=== PATIENT | female | born 1990 | race Caucasian/White ===

== ENCOUNTER 2017-06-16 19:33 | Emergency (ER) | payer SELFPAY ==
[~2017-06-16] VITALS: Ht 157.5 cm; Wt 44.5 kg
[~2017-06-16 19:33] MED LIST: NITR100C3 PO; PREN-385 PO
[2017-06-16 19:38] VITALS: BP 110/65
--- NOTE | 2017-06-16 19:40 | NUR ---
Pt presents to ED with x5 day abdominal pain with nausea. Pt states she is eating and drinking regularly with last BM on 06/15. Pt states pain is affecting her sleep. VSS. A&Ox4. In bed in poc. ER aware. Contininue to monitor.
--- NOTE | 2017-06-16 19:40 | NUR ---
TO ER BED 4
[2017-06-16] MEDS ORDERED: NACL 0.9% 1,000 ML IV ONE (20:35)
[2017-06-16] MEDS ORDERED: DICYCLOMINE HCL LIQUID 20 MG, ALUMINUM HYD/MAG/SIMETHICONE 30 ML, LIDOCAINE VISCOUS 2% ... PO ONE ×3 (20:35)
[2017-06-16] MEDS ORDERED: FAMOTIDINE 20 MG/2 ML VIAL IVP ONE (20:35)
[2017-06-16] MEDS ORDERED: ONDANSETRON 4 MG/2 ML VIAL IVP ONE (20:40)
[2017-06-16 21:23] LABS: BASOPHILS # (AUTO) 0.9 K/uL (0.00-0.22); EOSINOPHILS # (AUTO) 0.1 K/uL (0-0.4); HEMOGLOBIN 12.2 g/dL (12.0-16.0); MEAN CORPUSCULAR HEMOGLOBIN 29 pg (27-31); MEAN CORPUSCULAR HGB CONC 33 g/dL (33-37); MEAN CORPUSCULAR VOLUME 87 fL (80-94); MONOCYTES # (AUTO) 0.3 K/uL (0.8-1.0); NEUTROPHILS # (AUTO) 10.2 K/uL (1.8-7.7); PLATELET COUNT (AUTO) 282 K/uL (140-450); RED BLOOD CELL COUNT(AUTO) 4.26 MIL/uL (4.20-5.40); RED CELL DISTRIBUTION WIDTH 13.1 % (11.6-13.7); WHITE BLOOD COUNT (AUTO) 13.6 K/uL (4.8-10.8)
[2017-06-16 21:56] LABS: ANION GAP 13.1 (8-16); CARBON DIOXIDE 25.9 mmol/L (21-32); CREATININE 0.5 mg/dL (0.6-1.3)
[2017-06-16 21:59] LABS: ALBUMIN 3.9 g/dL (3.4-5.0); TOTAL BILIRUBIN 0.3 mg/dL (0.0-1.0)
[2017-06-16 22:12] LABS: APPEARANCE,URINE CLOUDY (CLEAR); BILIRUBIN,URINE NEGATIVE (NEGATIVE); BLOOD, URINE 1+ (NEGATIVE); COLOR,URINE YELLOW (YELLOW); LEUKOCYTE ESTERASE ,URINE NEGATIVE (NEGATIVE); NITRITE, URINE POSITIVE (NEGATIVE); PH,URINE 5.5 (5.0-9.0); UGLUCOSE NEGATIVE (NEGATIVE)
[2017-06-16 22:42] VITALS: BP 112/64
[2017-06-16 22:43] LABS: RBC,URINE 0-5 (RARE) /HPF (0-5); URINE AMORPHOUS URATE 4+ /HPF (None Seen); WBC,URINE 0-5 (RARE) /HPF (0-5)
--- NOTE | 2017-06-16 22:44 | NUR ---
Patient discharged with v/s stable. Written and verbal after care instructions given and explained. Patient alert, oriented and verbalized understanding of instructions. Ambulatory with steady gait. All questions addressed prior to discharge. ID band removed. Patient advised to follow up with PMD. Rx of ZOFRAN ODT, CIPRO 500MG, PEPCID 20MG given. Patient educated on indication of medication including possible reaction and side effects. Opportunity to ask questions provided and answered.
== END 2017-06-16 22:43 | disposition home or self-care (01) ==
LOC: MED 19:33
DX: N39.0 Urinary tract infection, site not specified (principal); Z79.899 Other long term (current) drug therapy
CPT/HCPCS: 36415; 80053; 81001; 81025; 83690; 84703; 85025; 87086; 87186; 96361; 96374; 96375; 99284; J2405; J3490; J7030

== ENCOUNTER 2022-08-17 21:34 | Inpatient (IN) | payer OTHER ==
[~2022-08-17] VITALS: Ht 160 cm; Wt 52.6 kg
[2022-08-17 22:55] VITALS: BP 111/76
[2022-08-17] MEDS ORDERED: ONDANSETRON 4 MG/2 ML VIAL IVP ONE (23:55)
[2022-08-17] MEDS ORDERED: DICYCLOMINE HCL LIQUID 20 MG, ALUMINUM HYD/MAG/SIMETHICONE 30 ML, LIDOCAINE VISCOUS 2% ... PO ONE ×3 (23:55)
[2022-08-17] MEDS ORDERED: MORPHINE SULFATE 4 MG/ML SYR IVP ONE (23:55)
[2022-08-17] MEDS ORDERED: NACL 0.9% 1,000 ML IV ONE (23:55)
[2022-08-17] MEDS ORDERED: ACETAMINOPHEN EXTRA STRENGTH 500 MG TAB PO ONE (23:55)
[2022-08-18 00:13] LABS: BASOPHILS % (AUTO) 0.3 % (0.0-2.0); EOSINOPHILS % (AUTO) 0.1 % (0.0-4.0); HEMOGLOBIN 12.4 g/dL (12.0-16.0); LYMPHOCYTES # (AUTO) 1.1 K/uL (2.5-16.5); LYMPHOCYTES % (AUTO) 11.9 % (20.5-51.1); MEAN CORPUSCULAR HEMOGLOBIN 28 pg (27-31); MEAN CORPUSCULAR HGB CONC 34 g/dL (33-37); MEAN CORPUSCULAR VOLUME 83.7 fL (80-94); MONOCYTES # (AUTO) 0.4 K/uL (0.8-1.0); MONOCYTES % (AUTO) 4.8 % (1.7-9.3); NEUTROPHILS # (AUTO) 7.4 K/uL (1.8-7.7); NEUTROPHILS % (AUTO) 82.9 % (42.2-75.2); PLATELET COUNT (AUTO) 285 K/uL (140-450); RED BLOOD CELL COUNT(AUTO) 4.42 MIL/uL (4.20-5.40); RED CELL DISTRIBUTION WIDTH 13.2 % (11.6-13.7)
[2022-08-18 00:17] LABS: APPEARANCE,URINE CLEAR (CLEAR); BILIRUBIN,URINE NEGATIVE (NEGATIVE); BLOOD, URINE 2+ (NEGATIVE); COLOR,URINE YELLOW (YELLOW); LEUKOCYTE ESTERASE ,URINE TRACE (NEGATIVE); NITRITE, URINE NEGATIVE (NEGATIVE); UGLUCOSE NEGATIVE (NEGATIVE)
[2022-08-18 00:34] LABS: ALBUMIN 3.7 g/dL (3.4-5.0); ANION GAP 13.4 (8-16); CREATININE 0.7 mg/dL (0.6-1.3); POTASSIUM 3.4 mmol/L (3.5-5.1); TOTAL BILIRUBIN 0.4 mg/dL (0.0-1.0)
--- NOTE | 2022-08-18 00:47 | NUR ---
PT RETURN FROM RADIOLOGY TO ER BED 11
[2022-08-18] MEDS ORDERED: NACL 0.9% 1,000 ML IV ONE (01:10)
[2022-08-18] MEDS ORDERED: ACETAMINOPHEN EXTRA STRENGTH 500 MG TAB PO ONE (01:10)
[2022-08-18] MEDS ORDERED: ONDANSETRON 4 MG/2 ML VIAL IVP ONE (01:10)
--- NOTE | 2022-08-18 01:20 | NUR ---
Patient resting in bed, A/Ox4, chest rise and fall symmetrical, no s/s of distress, on monitor.
[2022-08-18] MEDS: MORPHINE SULFATE 4 MG/ML SYR IVP ONE ×2 (01:28→01:30)
--- NOTE | 2022-08-18 01:42 | NUR ---
PT TAKEN TO CT
--- NOTE | 2022-08-18 02:30 | NUR ---
Patient resting in bed, A/Ox4, chest rise and fall symmetrical, no c/o pain or s/s of distress, on monitor.
[2022-08-18] MEDS ORDERED: cefTRIAXone 1,000 MG VIAL ONE (02:37)
[2022-08-18] MEDS ORDERED: MORPHINE SULFATE 4 MG/ML SYR IVP ONE (02:40)
--- NOTE | 2022-08-18 02:46 | NUR ---
Patient resting in bed, A/Ox4, chest rise and fall symmetrical, no s/s of distress, on monitor.
[2022-08-18] MEDS ORDERED: DEXT 5% / NACL 0.45% 1,000 ML IV SCH (03:00)
--- NOTE | 2022-08-18 04:22 | NUR ---
Patient will be admitted to care of . [facility]. Belongings list completed. Report to Darrick PERALES. Darrick PERALES verbalized understanding of report, no further questions. Addendum: 08/18/22 at 0428 by [email or web address] Patient will be admitted to care of Dr. Lou. [facility]. Belongings list completed. Report to Darrick PERALES. Darrick PERALES verbalized understanding of report, no further questions.
--- NOTE | 2022-08-18 04:35 | NUR ---
RECEIVED PT FROM ER VIA [employer]. PT IS AAOX4 ON RA. PT IS AMBULATORY. GAIT STEADY. PT HAS RIGHT AC 20 GAUGE RUNNIGN D5 1/2 NS 100 CC/HR. PT IS COMPLAINING OF ABD PAIN 10/03. MORPHINE WAS GIVEN IN ER. PT STATES IT FEELS LIKE IT THE EFFECT OF THE MEDICATION DID NOT LAST AND IT HELPED A LITTLE BIT. POC DISCUSSED. EDUCATED SENIOR ASSISTANT MANAGER LIGHT SYSTEM. WILL CONTINUE TO MONITOR THE PT.
--- NOTE | 2022-08-18 06:25 | NUR ---
OBSERVED PT. PT IS AWAKE. PT COMPLAINS OF ABD PAIN 5/10. PAIN IS TOLERABLE AT THIS TIME. PT HAS NO PRN MEDS ORDER FOR PAIN. WILL MESSAGE DR. FIELD.
[2022-08-18] MEDS ORDERED: HYDROcodone/APAP 5/325 MG 1 TAB TAB PO PRN ×2 (06:45→09:15)
[2022-08-18] MEDS ORDERED: ACETAMINOPHEN 325 MG TAB PO PRN (06:45)
[2022-08-18] MEDS ORDERED: HYDROcodone/APAP 10/325 MG 1 TAB TAB PO PRN (06:45)
--- NOTE | 2022-08-18 06:47 | NUR ---
SPOKE WITH DR. FIELD. ORDERED PRN PAIN MEDS. ALSO, ORDERED HIDA SCAN.
--- NOTE | 2022-08-18 07:22 | NUR ---
RECEIVED PATIENT FROM MANAGER [employer]BILE FOR CONTINUITY OF CARE. ALERT AND ORIENTED X4. AMBULATORY. RESP. EVEN AND UNLABORED. NO C/O PAIN OR DISCOMFORT. CALL LIGHT KEPT WITHIN REACH. WILL CONTINUE TO MONITOR.
--- NOTE | 2022-08-18 07:24 | NUR ---
ENDORSED PT TO DAY SHIFT RN FOR CONTINUITY OF CARE. PT IS STABLE.
[2022-08-18] MEDS ORDERED: fentaNYL citrate 0.05 MG/ML VIAL ONE (08:15)
[2022-08-18] MEDS ORDERED: SUCCINYLCHOLINE CHLORIDE 200 MG/10 ML VIAL IVP ONE (08:16)
[2022-08-18] MEDS ORDERED: BUPIVACAINE-MPF/EPI 0.25% 30 ML VIAL INJ ONE (08:21)
[2022-08-18] MEDS ORDERED: LIDOCAINE MPF 1% 10 ML ONE (08:21)
--- NOTE | 2022-08-18 08:30 | NUR ---
PT OFF UNIT, FOR SURGERY. UTILIZATION REVIEWER BY FRANCY PERALES FROM OR. REMAINS STABLE.
[2022-08-18] MEDS ORDERED: HYDROmorphone 1 MG/ML AMP IVP PRN ×2 (08:35→09:15)
[2022-08-18] MEDS ORDERED: MEPERIDINE 25 MG/ML SYR IVP PRN (08:35)
[2022-08-18] MEDS ORDERED: ONDANSETRON 4 MG/2 ML VIAL IVP PRN ×2 (08:35→09:30)
[2022-08-18] MEDS ORDERED: diphenhydrAMINE 50 MG/ML VIAL IVP PRN (08:35)
[2022-08-18] MEDS: LACTATED RINGERS 1,000 ML IV SCH ×2 (08:35→12:20)
[2022-08-18] MEDS ORDERED: ROCURONIUM 50 MG/5 ML VIAL IV ONE (09:08)
[2022-08-18] MEDS ORDERED: PROPOFOL 200 MG/20 ML VIAL IV ONE (09:08)
[2022-08-18] MEDS ORDERED: ePHEDrine 50 MG/ML VIAL ONE (09:13)
--- NOTE | 2022-08-18 09:17 | NUR ---
PATIENT HAS BEEN SCREENED AND CATEGORIZED LOW NUTRITION RISK. PATIENT WILL BE SEEN WITHIN 7 DAYS OF ADMISSION. 08/18/22-08/25/[address]
[2022-08-18] MEDS ORDERED: SUGAMMADEX SODIUM 200 MG/2 ML VIAL IV ONE (09:28)
[2022-08-18] MEDS ORDERED: LORazepam 2 MG/ML VIAL IVP PRN (09:30)
--- NOTE | 2022-08-18 09:30 | NUR ---
CLARIFIED WITH DR FIELD REGARDING HIDA SCAN, PT CURRENTLY OFF UNIT FOR SURGERY. PER CONTINUE HIDA SCAN AFTER SURGERY. CALLED [facility] AND MADE AWARE.
[2022-08-18] MEDS ORDERED: MEPERIDINE 25 MG/ML SYR ONE (09:37)
[2022-08-18] MEDS ORDERED: HYDROmorphone PFS 2 MG/ML SYR ONE (10:02)
[2022-08-18 10:37] VITALS: BP 97/58
--- NOTE | 2022-08-18 10:37 | NUR ---
PT RETURN FROM SURGERY. RECEIVED REPORT FROM FRANCY PERALES FROM OR. ON S/P LAPAROSCOPIC CHOLECYSTECTOMY. WITH 3 INCISIONS. NO BLEEDING, NO SWELLING NOTED. NO C/O PAIN OR DISCOMFORT. CALL LIGHT KEPT WITHIN REACH. PT CLOSELY MONITOR. VS REMAINS STABLE.
[2022-08-18] MEDS ORDERED: SEVOFLURANE 250 ML BTL INH ONE (10:50)
--- NOTE | 2022-08-18 10:50 | NUR ---
PT GEOTHERMAL OPERATIONS ENGINEER BY [facility] FOR NUCLEAR MEDICINE.
--- NOTE | 2022-08-18 12:00 | NUR ---
PT RETURN FROM NUCLEAR MEDICINE. ALERT AND VERBALLY RESPONSIVE. NOT IN ANY DISTRESS NOTED.
--- NOTE | 2022-08-18 12:35 | NUR ---
LUNCH SERVED. TOLERATING DIET.
[2022-08-18] MEDS ORDERED: DEXAMETHASONE 4 MG/ML VIAL ONE (12:41)
[2022-08-18] MEDS ORDERED: ONDANSETRON 4 MG/2 ML VIAL ONE (12:41)
--- NOTE | 2022-08-18 14:19 | NUR ---
PRN NORCO GIVEN FOR PAIN MANAGEMENT. TOLERATED WELL.
[2022-08-18 16:00] VITALS: BP 91/53
--- NOTE | 2022-08-18 18:40 | NUR ---
PT COMPLAINT OF ABDOMINAL PAIN 12/03. PRN DILAUDID IVP WAS NOT GIVEN D/T BP 91/53. DR. FIELD NOTIFIED, WITH NEW ORDER: TORADOL 30 MG IVP PRN Q 6H. NOTED AND CARRIED OUT.
--- NOTE | 2022-08-18 19:25 | NUR ---
BEDSIDE REPORT GIVEN TO NIGHT NURSE MATEO FOR CONTINUITY OF CARE. REMAINS STABLE.
--- NOTE | 2022-08-18 19:26 | NUR ---
RECEIVED ENDORSEMENT FROM SHAYAN CERVANTES, PATIENT WAS STABLE DURING SHIFT CHANGE. PATIENT IN BED COMPLAINED OF PAIN. NURSING WILL RETURN WITH PAIN MANAGEMENT. PATIENT WAS BREATHING ON ROOM AIR WITHOUT DISTRESS. PATIENT WAS NOT ABLE TO EAT ALL OF HER MEAL, 50% OF DINNER. ALL NEEDS MET. SIDE RAILS UP FOR ASSISTANCE AND ADJUSTMENT. CALL LIGHT WITHIN REACH. [email or web address]
[2022-08-18 20:00] VITALS: BP 93/55
[2022-08-18] MEDS ORDERED: KETOROLAC 30 MG/ML VIAL IVP PRN (20:20)
--- NOTE | 2022-08-18 22:45 | NUR ---
NORCO PRN WAS EFFECTIVE AFTER GIVING HER THE PRN FOR PAIN. NOT NOTED SIDE EFFECTS. [email or web address]
[2022-08-18] MEDS ORDERED: POTASSIUM CHLORIDE 10 MEQ TABER PO ONE (23:05)
[2022-08-18] MEDS ORDERED: POTASSIUM CHLORIDE 10 MEQ TABER PO SCH (23:15)
--- NOTE | 2022-08-18 23:36 | NUR ---
PATIENT WAS ABLE TO TAKE KDUR 40MEQ ORALLY WITHOUT INCIDENT. PATIENT WAS GIVEN SNACK COMPLAINED OF STOMACH HURT A BIT AFTER THE NORCO. NURSING WILL MONITOR FOR PAIN/DISCOMFORT. [email or web address]
--- NOTE | 2022-08-19 00:37 | NUR ---
PATIENT NOTED IN BED SLEEPING. NO NOTED S/S OF PAIN/DISCOMFORT. SNACK CONSUMED. CHEST RISING AND FALLING WITHOUT INCIDENT. SIDE RAILS UP X 2 CALL LIGHT WITHIN REACH. [email or web address]
[2022-08-19] MEDS: LACTATED RINGERS 1,000 ML IV SCH (01:30)
--- NOTE | 2022-08-19 03:48 | NUR ---
PATIENT NOTED IN BED ASLEEP. NO NOTED RESPIRATORY DISTRESS. PATIENT EASY TO AROUSE. STATED ABDOMINAL PAIN WENT AWAY AFTER EATING. NO S/S OF PAIN/DISCOMFORT. ALL NEEDS MET. CALL LIGHT IN REACH. SIDE RAILS UP X 2 FOR ADJUSTMENT AND COMFORT. [email or web address]
[2022-08-19 04:00] VITALS: BP 90/49
--- NOTE | 2022-08-19 05:17 | NUR ---
NO COMPLAINS OF PAIN/DISCOMFORT. WILL ENDORSE SHIFT TO AM NURSING. NO NOTED RESPIRATORY DISTRESS. CALL LIGHT WITHIN REACH. [email or web address]
[2022-08-19 07:05] LABS: ALBUMIN 2.8 g/dL (3.4-5.0); ANION GAP 7.6 (8-16); CARBON DIOXIDE 27.8 mmol/L (21-32); CREATININE 0.5 mg/dL (0.6-1.3); MAGNESIUM 1.8 mg/dL (1.8-2.4); PHOSPHORUS 2.8 mg/dL (2.5-4.9); POTASSIUM 4.4 mmol/L (3.5-5.1)
[2022-08-19 07:30] LABS: TOTAL BILIRUBIN 0.1 mg/dL (0.0-1.0)
[2022-08-19 07:34] LABS: BASOPHILS % (AUTO) 0.5 % (0.0-2.0); EOSINOPHILS % (AUTO) 0.2 % (0.0-4.0); HEMATOCRIT 30.6 % (36-48); HEMOGLOBIN 10.4 g/dL (12.0-16.0); LYMPHOCYTES % (AUTO) 26.2 % (20.5-51.1); MEAN CORPUSCULAR HEMOGLOBIN 29 pg (27-31); MEAN CORPUSCULAR HGB CONC 34 g/dL (33-37); MEAN CORPUSCULAR VOLUME 84.8 fL (80-94); MONOCYTES # (AUTO) 0.7 K/uL (0.8-1.0); MONOCYTES % (AUTO) 8.7 % (1.7-9.3); NEUTROPHILS # (AUTO) 4.8 K/uL (1.8-7.7); NEUTROPHILS % (AUTO) 64.4 % (42.2-75.2); PLATELET COUNT (AUTO) 234 K/uL (140-450); RED BLOOD CELL COUNT(AUTO) 3.61 MIL/uL (4.20-5.40); RED CELL DISTRIBUTION WIDTH 13.3 % (11.6-13.7); WHITE BLOOD COUNT (AUTO) 7.5 K/uL (4.8-10.8)
--- NOTE | 2022-08-19 07:50 | NUR ---
GOT REPORT FROM THE NIGHT NURSE, PT AWAKE DISCUSSED POC. [id number]
[2022-08-19 08:00] VITALS: BP 122/86
[2022-08-19] MEDS ORDERED: MULTIVIT/MIN/CA/FE/FA 1 TAB PO SCH (09:00)
[2022-08-19] MEDS ORDERED: traMADol 50 MG TAB PO PRN (09:05)
[2022-08-19] MEDS ORDERED: IBUPROFEN 600 MG TAB PO PRN (09:05)
--- NOTE | 2022-08-19 14:15 | NUR ---
PATIENT COMPLAINED OF INCREASED PAIN AFTER PAIN REASSESSMENT. NMURUM
[2022-08-19] MEDS ORDERED: TRAM50TA3 PO (14:19)
[2022-08-19] MEDS ORDERED: IBUP-2213 PO (14:19)
[2022-08-19 16:00] VITALS: BP 97/65
--- NOTE | 2022-08-19 16:40 | NUR ---
D/C HOME ACCOMPANIED BY SPOUSE IN STABLE CONDITION, NO C/O PAIN. INFORMED CHARGE NURSE.
[2022-08-19 16:56] VITALS: BP 97/65
== END 2022-08-19 16:40 | disposition home or self-care (01) | DRG 418 ==
LOC: MED 21:34 → MMU 08-18 03:02 → MTU 08-18 03:51
PROVIDERS: ADMIT Preventive Medicine Preventive Medicine/Occupational Environmental Medicine; ATTEND Preventive Medicine Preventive Medicine/Occupational Environmental Medicine
PROC: 0FT44ZZ Resection of Gallbladder, Percutaneous Endoscopic Approach (ICD-10-PCS; principal; 2022-08-18 08:30)
DX: K80.00 Calculus of gallbladder with acute cholecystitis without obstruction (principal); E44.0 Moderate protein-calorie malnutrition; E83.51 Hypocalcemia; E88.09 Other disorders of plasma-protein metabolism, not elsewhere classified; Z20.822 Contact with and (suspected) exposure to COVID-19; E87.6 Hypokalemia; D64.9 Anemia, unspecified; Z90.49 Acquired absence of other specified parts of digestive tract; Z68.20 Body mass index [BMI] 20.0-20.9, adult
CPT/HCPCS: 36415; 76705; 78445; 80053; 81001; 81025; 83605; 83690; 83735; 84100; 85025; 87040; 87081; 87086; 96365; 96375; 99285; J0330; J0696; J1100; J1170; J1885; J2001; J2175; J2270; J2405; J2704; J3010; J3490; J7060